=== PATIENT | female | born 1935 | race Caucasian/White ===

== ENCOUNTER 2022-04-08 16:35 | Emergency (ER) | payer OTHER, MEDICARE, SELFPAY ==
[2022-04-08] VITALS (9 sets, daily range): BP systolic 150–165; BP diastolic 82–92; PULSE 87–101; RESP 19–20; TEMP 36.6–36.7; O2SAT 93–95; BMI 23.3
--- NOTE | 2022-04-08 16:43 | CT_ITS ---
PROCEDURE INFORMATION: Exam: CT Abdomen And Pelvis With Contrast Exam date and time: 04/08/2022 5:21 PM Age: 87 years old Clinical indication: Abdominal pain; Additional info: Abdominal pain, generalized TECHNIQUE: Imaging protocol: Computed tomography of the abdomen and pelvis with contrast. Radiation optimization: All CT scans at this facility use at least one of these dose optimization techniques: automated exposure control; mA and/or kV adjustment per patient size (includes targeted exams where dose is matched to clinical indication); or iterative reconstruction. Contrast material: ISOVUE; Contrast volume: 75 ml; Contrast route: IV; COMPARISON: No relevant prior studies available. FINDINGS: Lungs: Lung bases are clear. Pleural spaces: There are small-moderate sized bilateral pleural effusions slightly larger on the left. The Diaphragm: There is a small hiatal hernia. Liver: See Gallbladder and bile ducts finding. Gallbladder and bile ducts: Gallbladder has been removed. There is moderate biliary dilatation involving the intrahepatic and extrahepatic bile ducts. Pancreas: There is at least mild dilatation of the main pancreatic duct down to the level of the appeal a. There is no pancreatic head mass detected. There are some scattered punctate densities within the head of the pancreas presumed represent calcifications from chronic calcific pancreatitis. Spleen: Normal. No splenomegaly. Adrenal glands: Normal. No mass. Kidneys and ureters: There is scarring and atrophy involving lower half the right kidney. Left kidney is unremarkable. Stomach and bowel: There is marked colonic distention with retained feces involving majority the large bowel terminating at the splenic flexure where there appears to be a masslike stricture best demonstrated in the sagittal and axial planes extending for 3 cm in length. Distal large bowel is not dilated. Small bowel loops are not dilated. Appendix: No evidence of appendicitis. Intraperitoneal space: Unremarkable. No free air. No significant fluid collection. Vasculature: There are diffuse atherosclerotic changes of the abdominal aorta and iliac vessels without aneurysm formation. Lymph nodes: Unremarkable. No enlarged lymph nodes. Urinary bladder: Unremarkable as visualized. Reproductive: There is a 3 cm right adnexal cyst difficult to further assess on this study. Bones/joints: There are multiple compression fractures lower thoracic and lumbar spine many of which have been treated with vertebroplasty. Superimposed degenerative changes are present lower lumbar spine. There is a cephalomedullary nail transfixing in the old fracture of the right hip. Soft tissues: Unremarkable. Other findings: Acute; Both IMPRESSION: 1. 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 2. Prior cholecystectomy with pronounced dilatation of the biliary tract and to lesser extent the main pancreatic duct possibly due to biliary dyskinesia. 3. Additional findings as above.
[2022-04-08 17:08] LABS: Basophils % 0.7 % (0.1-2.0); Eosinophils # 0.1 K/mm3 (0.0-0.4); Hematocrit 34.1 % (37.0-47.0); Hemoglobin 10.2 g/dL (12.2-16.2); Lymphocytes # 1.4 K/mm3 (0.7-4.5); Mean Corpuscular Volume 93.4 fl (81-99); Mean Platelet Volume 7.3 fl (7.4-10.4); Monocytes # 0.5 K/mm3 (0.1-1.0); Monocytes % 7.7 % (1.7-9.3); Neutrophils # 4.3 K/mm3 (1.8-7.8); Neutrophils % 67.5 % (37.0-80.0); Platelet Count 273 K/mm3 (142-424); Red Blood Count 3.65 M/mm3 (4.20-5.40); Red Cell Distribution Width 14.7 % (11.5-17.5); White Blood Count 6.4 K/mm3 (4.8-10.8)
[2022-04-08 17:10] LABS: Chloride 102 mmol/L (98-107); Potassium 3.6 mmoL/L (3.5-5.1); Sodium 134 mmol/L (136-145)
[2022-04-08 17:12] LABS: Alanine Aminotransferase 47 U/L (12-78); Aspartate Amino Transferase 128 U/L (14-36); Blood Urea Nitrogen 12 mg/dl (7-17); Creatinine Clearance Estimated 40 mL/min (50-200); Estimated Glomerular Filt Rate 79 ml/min (>60); GFR (African American) 96 ML/MIN (>60)
[2022-04-08 17:13] LABS: Albumin Level 3.7 g/dl (3.5-5.0); Albumin/Globulin Ratio 1.4 (1.1-1.8); Alkaline Phosphatase 185 U/L (38-126); Anion Gap 12.6 mEq/L (5-15); Bilirubin,Total 0.7 mg/dl (0.2-1.3); Calcium 9.4 mg/dl (8.4-10.2); Carbon Dioxide 23 mmol/L (22.0-30.0); Globulin 2.7 g/dL (1.3-3.2); Glucose 95 mg/dl (74-100); Lipase 56 U/L (23-300); Total Protein,Serum 6.4 g/dl (6.3-8.2)
--- NOTE | 2022-04-08 17:17 | PC.NURSE ---
Pt transported to radiology via stretcher.
[2022-04-08 17:19] LABS: C-Reactive Protein 20.2 mg/L (0-4)
[2022-04-08 17:26] LABS: Lactic Acid 0.8 mmol/L (0.7-2.1)
--- NOTE | 2022-04-08 17:27 | PC.NURSE ---
Pt returned from radiology.
[2022-04-08 17:30] LABS: Troponin I < 0.01 ng/ml (0.00-0.034)
--- NOTE | 2022-04-08 17:58 | [facility].EDABDPAI ---
Discharge Plan Disposition Patient Disposition: Home, Self-Care Condition: Fair Prescriptions Prescriptions: No Action fexofenadine [Radha] 180 mg Tablet 180 mg PO DAILY citalopram 20 mg Tablet 20 mg PO DAILY lorazepam 0.5 mg Tablet 0.5 mg PO HS PRN (Reason: Anxiety) methocarbamol 750 mg Tablet 750 mg PO HS duloxetine 60 mg Capsule,Delayed Release(Dr/Ec) 60 mg PO DAILY fentanyl 12 mcg/hr Patch 72 Hour 1 patch TRANSDERMAL Q72H oxycodone 10 mg Tablet,Oral Only,Ext.Rel.12 Hr 10 mg PO BID Referrals Follow up/Referrals: Keshawn Chinchilla MD [Primary Care Provider] - See instructions Clinical Impressions Clinical Impression: Colonic mass, Large bowel obstruction Discharge ED Provider: Kenneth Muñiz Abdominal Pain HPI General Chief Complaint: Abdominal Pain Stated Complaint: Abdominal Pain Time Seen by Provider: 04/08/22 16:45 Mode of Arrival: EMS Source of Information: Patient Limitations: No Limitations Description of Symptoms (Recalled from ER Triage Doc. by RN): pt reports RLQ abdominal pain that started about 3-4 days ago, states she hasn't had a BM in 10 days History of Present Illness HPI narrative: Patient is an 87-year-old female who is currently on hospice care who presents with concern for right lower quadrant pain. Her pain started 3 to 4 days ago and has gotten substantially worse. She says she has not had a bowel movement in approximately 10 days. She says that she is not having much of an appetite because her abdomen hurts anytime that she eats. She denies any fever or chills. She locates her pain mainly in the right lower quadrant but says that it feels like it extends to the left side as well. Describes it as a cramping sensation. He is intermittent. No nausea or vomiting. Related Data Home Medications Medication Instructions Recorded Confirmed citalopram 20 mg tablet 20 mg PO DAILY Depression 04/08/22 04/08/22 duloxetine 60 mg capsule,delayed 60 mg PO DAILY Depression 04/08/22 04/08/22 release fentanyl 12 mcg/hr transdermal 1 patch transdermal Q72H Pain 04/08/22 04/08/22 patch fexofenadine 180 mg tablet 180 mg PO DAILY Allergy symptoms 04/08/22 04/08/22 lorazepam 0.5 mg tablet 0.5 mg PO HS PRN Anxiety 04/08/22 04/08/22 methocarbamol 750 mg tablet 750 mg PO HS muscle spasms 04/08/22 04/08/22 oxycodone 10 mg tablet,crush 10 mg PO BID Pain 04/08/22 04/08/22 resistant,extended release 12 hr Allergies Allergy/AdvReac Type Severity Reaction Status Date / Time Penicillins Allergy Verified 04/08/22 16:46 PFSH [facility] Medical History (Updated 04/08/22 @ 20:28 by Kenneth Muñiz MD) Depression History of gastroesophageal reflux (GERD) Osteoporosis Social History Smoking Status: Never smoker alcohol intake: never current occupational status: previously employed Travel in the last 8 weeks: None ROS Obtained: Yes All systems reviewed & no additional complaints except as documented A 14 point review of system was obtained and otherwise negative except per HPI Physical Exam General General appearance: alert and in no apparent distress Head Head exam: atraumatic, normocephalic and normal inspection Eye Eye exam: Present normal appearance, PERRL and EOMI ENT ENT exam: Present normal exam, normal oropharynx, mucous membranes moist, TM's normal bilaterally and normal external ear exam Neck Neck exam: Present normal inspection, full ROM and trachea midline; Absent meningismus or lymphadenopathy Chest Chest inspection: Present normal inspection and symmetric chest wall rise; Absent tenderness Respiratory Respiratory exam: Present normal lung sounds bilaterally; Absent respiratory distress Cardiovascular Cardiovascular exam: Present regular rate and normal rhythm; Absent JVD Abdominal Exam Abdominal exam: Present soft, distention, tenderness and normal bowel sounds; Absent guarding Extremities Exam Extremities
[2022-04-08 18:34] LABS: Coronavirus 19, PCR Not Detected (NotDetected); Influenza A, PCR Not Detected (NotDetected); Influenza B, PCR Not Detected (NotDetected)
--- NOTE | 2022-04-08 19:00 | PC.NURSE ---
Dr Muñiz is speaking to Dr Avila regarding pt.
--- NOTE | 2022-04-08 19:06 | PC.NURSE ---
Provided pt with warm blanket and something to drink.
--- NOTE | 2022-04-08 19:29 | PC.NURSE ---
Dr. Muñiz speaking with hospice
--- NOTE | 2022-04-08 19:53 | PC.NURSE ---
Dr. Muñiz at speaking with pt/family
== END 2022-04-08 21:03 | disposition home or self-care (01) ==
PROVIDERS: Emergency Provider Student in an Organized Health Care Education/Training Program; PCP Family Medicine Hospice and Palliative Medicine
DX: K56.609 Unspecified intestinal obstruction, unspecified as to partial versus complete obstruction (principal); K63.89 Other specified diseases of intestine; Z79.899 Other long term (current) drug therapy; F32.A Depression, unspecified; F41.9 Anxiety disorder, unspecified; D64.9 Anemia, unspecified
CPT/HCPCS: 74177; 80053; 83605; 83690; 84484; 85025; 86140; 99284; C9803; Q9967; U0003; U0005

== ENCOUNTER → 2022-06-15 07:45 | Outpatient (CLI) | payer OTHER, MEDICARE, SELFPAY ==
[2022-06-15 07:52] LABS: Microscopic, Urine URINE MICROSCOPIC (MICROSCOPIC)
[2022-06-15 09:10] LABS: Appearance,Urine SL CLOUDY (Clear); Bilirubin,Urine Negative (Negative); Blood, Urine TRACE-L (Negative); Color,Urine YELLOW (Yellow); Glucose,Urine (UA) Negative (Negative); Ketones,Urine Negative (Negative); Leukocyte Esterase,Urine 2+ (Negative); Nitrate,Urine POSITIVE (Negative); PH,Urine 5.5 (5.0-8.5); Protein,Urine Negative (Negative); Specific Gravity, Urine 1.015 (1.005-1.030); Urobilinogen,Urine 0.2 EU/dl (0.2)
[2022-06-15 09:25] LABS: Bacteria,Urine 3+ /lpf; Calcium Oxalate Crystals,Urine Trace /lpf; RBC,Urine Occasional #/hpf (0-3); Squamous Epithelial Cell,Urine Occasional #/hpf (0-5)
== END ==
PROVIDERS: PCP Family Medicine Hospice and Palliative Medicine; Visit Provider Family Medicine Hospice and Palliative Medicine
DX: I50.30 Unspecified diastolic (congestive) heart failure (principal); E46 Unspecified protein-calorie malnutrition; I10 Essential (primary) hypertension
CPT/HCPCS: 81001; 87086; 87088; 87186